=== PATIENT | male | born 1940 | race Caucasian/White ===

== ENCOUNTER → 2022-06-15 | Outpatient (CLI) | payer SELFPAY, OTHER ==
--- NOTE | 2022-06-15 07:19 | MRI_ITS ---
INDICATION: CT showing stones EXAMINATION: MRI - MR MRCP and Abdomen W/O Contrast TECHNIQUE: Multiplanar and multisequence MR images of the abdomen were obtained with MRCP sequence. Three-dimensional post-processing reconstructions were performed. IV Contrast Dosage and Agent: None. COMPARISON: Right upper quadrant ultrasound 05/31/2022. CT May 31, 2022. FINDINGS: LIVER: No mass. Normal morphology. GALLBLADDER AND BILIARY TREE: No gallstones. No gallbladder distension or wall edema. The CBD measures 3 mm with abrupt termination just prior to the ampulla. No intra- or extrahepatic biliary dilation. No choledochal filling defect. PANCREAS: Diffuse smooth pancreatic ductal dilatation, beginning near the ampulla without intraluminal filling defect or surrounding cystic mass. Homogeneous pancreatic parenchyma. No peripancreatic inflammation.. SPLEEN: Non-enlarged. ADRENAL GLANDS: No nodules. KIDNEYS: Homogeneous T2 hyperintense 6.7 cm right renal parapelvic lesion compatible with cyst. Normal renal size and position. No hydronephrosis. No mass. LYMPH NODES: No enlarged periportal or retroperitoneal lymph nodes. PERITONEUM: No ascites or fluid collection. VESSELS: Aorta is non-dilated. LOWER CHEST: Partially seen sternotomy change. No pleural effusion. MRI/MRCP Abdomen without Contrast IMPRESSION: Pancreatic ductal dilatation beginning abruptly at the pancreatic head. Similar abrupt termination of an otherwise nondistended, bile duct at the ampulla. Cannot exclude pancreatic head mass or ampullary ductal stone. Consider smaller [id number] Pancreatic MRI with and without IV contrast and diffusion imaging to further assess for pancreatic head mass. Correlate with pancreatic labs to exclude pancreatitis. Electronically Signed: Julius Rowan MD at 22:34 EST ,
== END | disposition home or self-care (01) ==
PROVIDERS: PCP Family Medicine; Referring Provider Internal Medicine Gastroenterology; Visit Provider Internal Medicine Gastroenterology
DX: R10.9 Unspecified abdominal pain (principal)
CPT/HCPCS: 74181

== ENCOUNTER → 2022-06-24 | Outpatient (CLI) | payer SELFPAY, OTHER ==
--- NOTE | 2022-06-24 09:57 | MRI_ITS ---
REASON FOR EXAM: Male, 81 years old. Follow-up MRCP. Question TECHNIQUE: Standardized fat and water weighted pulse sequences were obtained in all 3 orthogonal planes post contrast administration. 15ML IV CLARISCAN was administered for the contrast portion of the examination. COMPARISON: None. FINDINGS: The visualized lung bases are unremarkable. The visualized portions of the heart are within normal limits. Normal liver. Normal gallbladder and extrahepatic biliary system. Normal spleen. Again noted is marked pancreatic ductal dilatation is noted in the ERCP. This can be followed to just above the ampulla there appears to be abrupt narrowing of the duct versus occlusion. There is no visualized abnormality on T2-weighted imaging. There is no evidence of abnormal enhancement to suggest focal mass. Normal bilateral adrenal glands. Stable large cyst centrally within the right kidney. Small cortical cysts are seen in the lower pole the left kidney. Stomach is poorly distended. Normal visualized small intestine. Normal visualized colon. Normal abdominal aorta. Normal inferior vena cava. Normal retroperitoneum. Normal abdominal wall. There is Normal osseous structures. MRI/MRI Abd WITH and W/O Contrast IMPRESSION: 1. Distended pancreatic duct to the pancreatic head. There is no MR findings to suggest a mass. Question ampullary stenosis the patient may ultimately require ERCP. 2. Stable renal cysts. 3. No other major interval change when compared to the MRCP. Electronically Signed: Eyal Daley DO at 17:34 EST Reading Location ID and State: [facility] / [place] Tel [phone], Service support ,
[2022-06-24 10:25] LABS: CREATININE FINGERSTICK 1.4 mg/dL (0.70-1.30)
[2022-06-24 12:05] LABS: Absolute Lymphocyte Count 1.14 X10^3/uL (0.83-4.51); Absolute Neutrophil Count 4.4 X10^3/uL (2.0-7.7); Basophil# 0.04 X10^3/uL; Basophil% 0.7 % (0-1); Eosinophil# 0.06 X10^3/uL; Hematocrit 48.6 % (40-54); Hemoglobin 16.1 g/dL (13.0-16.5); Lymphocyte # 1.14 X10^3/ul (0.83-4.51); Lymphocyte % 18.9 % (19-41); Mean Corp Hgb Conc 33.1 g/dL (32-36); Mean Corpuscular Hgb 31.1 pg (27.0-32.0); Mean Platelet Vol. 9.4 fl (6.2-12.0); Monocyte# 0.41 X10^3/uL; Monocyte% 6.8 % (0-10); NRBC Flagged by Analyzer 0 % (0-5); Neutrophil # 4.37 X10^3/uL (2.7-7.7); Neutrophil % 72.4 % (47-70); Platelet Count 195 K/mm3 (150-450); RBC Distribution Width CV 13.6 % (11.6-14.6); RBC Distribution Width SD 47.2 fl (35.1-43.9); Red Blood Count 5.17 M/mm3 (4.6-6.2)
[2022-06-24 12:15] LABS: AST(SGOT) 23 U/L (15-37); Alanine Aminotransfer ALT/SGPT 22 U/L (16-61); Albumin, Serum 3.7 g/dL (3.2-5.0); Alkaline Phosphatase 51 U/L (45-117); Amylase 65 U/L (25-115); Anion Gap 5 (5-15); BUN 18 mg/dL (7-18); BUN/Creat Ratio 16.1 RATIO (10-20); Calcium,Total 9.4 mg/dL (8.5-10.1); Chloride 104 mmol/L (98-107); Creatinine, Serum 1.12 mg/dL (0.70-1.30); EST Glomerular Filtration Rate 67 mL/min (>60); Est Glom Filt Rate - Afr Amer 81 mL/min (>60); Globulin 3.7 g/dL (2.2-4.2); Glucose 108 mg/dL (74-106); Lipase 204 U/L (73-393); Potassium 4.1 mmol/L (3.5-5.1); Protein, Total 7.4 g/dL (6.4-8.2); Sodium Level 138 mmol/L (136-145)
[2022-06-25 17:07] LABS: IgG, Quant 967 mg/dL (603-1613); Immunoglobulin G, Subclass 1 395 mg/dL (248-810); Immunoglobulin G, Subclass 2 393 mg/dL (130-555); Immunoglobulin G, Subclass 3 69 mg/dL (15-102)
[2022-06-25 20:59] LABS: Immunoglobulin G, Subclass 4 15 mg/dL (2-96)
== END | disposition home or self-care (01) ==
PROVIDERS: PCP Family Medicine; Referring Provider Internal Medicine Gastroenterology; Visit Provider Internal Medicine Gastroenterology
DX: R93.3 Abnormal findings on diagnostic imaging of other parts of digestive tract (principal)
CPT/HCPCS: 36415; 74183; 80053; 82150; 82784; 82787; 83690; 85025; A9575; A4216

== ENCOUNTER 2022-09-14 11:09 | Day surgery (SDC) | payer SELFPAY, OTHER ==
[2022-09-14] MEDS: Lactated Ringers 1,000 ML 15 ML IV (11:43)
[2022-09-14 11:45] VITALS: BP 142/86; PULSE 62; RESP 18; TEMP 36.7; O2SAT 99; BMI 26.2
--- NOTE | 2022-09-14 12:00 | FLU_PTH ---
PATIENT: KRISTINA BOJORQUEZ LOC: EN U#:[id number] AGE/SX: 82/M ROOM: RE09/14/[address]: Dr. Osito Parikh DO : 1940 BED: DIS: 09/14/2022 SPEC #: [id number] RECD: 09/14/22 13:26 STATUS: KWADWO REFco #: [id number] SHAVON: 09/14/22 12:[address]: Osito Parikh DEPT: CYTOLOGY RECD BY: Payal Palafox ENTERED: 09/14/22 13:42 SP TYPE: Fluid OTHR DR: Dr. James King DO Tissues: A - Bile duct, NOS B - Bile duct, NOS Procedures: Special Stain Group II Surgery Specimen Level IV Cytospin Fluid Cytology Other HEADER OPERATION: ERCP PRE-OP DIAGNOSIS: MRCP abnormality, abdominal pain TISSUE SUBMITTED: A ? Distal common bile duct stricture brushings, B ? Remlap smears x4 DIAGNOSIS CYTOLOGY A. Distal common bile duct stricture brushings (cytospin and cell block): Rare atypical epithelial cells present. See comment. B. Common bile duct brushings (smears): Negative for malignant cells. AM:flower 09/15/2022 COMMENT A. A reactive process is favored. Clinical correlation is suggested. CYTOLOGY STUDY Slides are reviewed. CYTOLOGY GROSS A - Received is a metallic endoscopic cytobrush with adherent minute fragments of peña-red tissue brush in 0.5 ml of light pink fluid and labeled with the patient's name and and designated per the requisition as brushings. The material is dislodged from the brush and submitted for cytology preparation including cell block. B - Received are four smears labeled with the patient's name and designated per the requisition as brush. Submitted for staining. / flower 09/14/2022 TC:5 CPT: 38028, 60468, 62273
--- NOTE | 2022-09-14 12:00 | PCM.HP.BLA ---
History and Physical Date of Admission: 09/14/22 KRISTINA BOJORQUEZ, is a 81 M who presents to the office today for Initial consult. PMH PE, respiratory failure; systolic dysfunction, CAD s/p CABG, anxiety/depression [facility] ED presentation 05.31.22 with abdominal pain. ?Biochemical workup?CBC, CMP, lipase without pertinent abnormality. UA WNL. CT abd/pel?density at gallbladder neck, gallstone; pancreatic head calcification near amuplla of Vater measuring 0.8x0.5cm, pancreatic duct measures 0.5cm, mild pancreatic atrophy; renal cysts; moderate to large stool burden; diverticulosis of colon ?US RUQ?noting 3 shadowing stones of gallbladder measuring 1.5-2.1cm. CBD obscured. *BGI established 06.01.22 following [facility] ED presentation. Continues to have abdominal pain which presented initially LUQ and is now settled into right lower flank. Constipation is a difficulty with BM occurring approximately once a week; utilizes PRN MiraLAX and magnesium citrate. ROS Const Constitutional: No anorexia, fatigue, fever(s), weight change or sleep problems Eyes Eyes: No change in vision ENT ENT: No abnormal hearing, difficulty swallowing, mouth lesions, tongue swelling or throat swelling Resp Respiratory: No cough or shortness of breath Cardio Cardiology: No chest pain at rest, chest pain with exertion, shortness of breath or dyspnea on exertion Gastro GI: No difficulty swallowing Genitourinary Male: No difficulty urinating or burning urination Musc Musculoskeletal: No joint pain, joint swelling, muscle weakness or decreased muscle mass Skin Skin: No hair loss in leg, yellowing of the eye, itchy eyes, rash, skin ulcer or skin swelling Neuro Neurology: No abnormal hearing, abnormal movements, confusion, unsteady gait/balance or memory loss Psych Psychiatric: No anxiety, No confusion and No memory loss Endo Endocrine: No fatigue or weight change Aller/Imm Allergy/Immunologic: No itchy eyes, throat swelling or tongue swelling Marcial/Lymp Hematologic/Lymphatic: No easy bleeding, easy bruising or enlarged lymph nodes Exam Const General: cooperative and comfortable Nutritional Appearance: average body habitus and well nourished HENMT Head: normal to inspection Ears: hearing grossly normal bilaterally Nose: external nose normal Face and sinus: normal facial exam Mouth: oral mucosae normal Throat: posterior oropharynx normal Eyes General: appearance normal, both eyes and all related structures Neck Neck: normal visual inspection Chest Chest palpation & inspection: normal inspection of the chest and normal palpation of entire chest wall Resp Effort & Inspection: normal respiratory effort Auscultation: Bilateral: Clear to Auscultation Cardio Palpation: normal PMI Rate: regular rate Rhythm: regular rhythm GI Inspection: normal to inspection Auscultation: normal bowel sounds Percussion: normal to percussion Palpation: no hepatosplenomegaly Skin General: no rashes or lesions noted Neuro General: patient alert Extrem General: normal to inspection Psych Affect: normal affect Quality Reporting Tobacco Screening ([facility] 138) Smoking Status: Never smoker Assessment and Plan Assessment and Plan (1) Constipation: ?Status:?Chronic ?Plan: Chronic idiopathic constipation 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 We will put him on Linzess 145 mcg p.o. daily. (2) Abdominal pain: ?Status:?Chronic ?Plan: Abdominal pain with history of possible chronic pancreatitis.? We will work him up for IgG associated liver disease and IgG associated pancreatitis.? We will get an MRCP for further evaluation of his hepatobiliary system. ? ? ? Orders: Orders MRCP Abdomen without Contrast 06/15/22 R10.9 - Unspecified abdominal pain ? Medications: New linaclotide (Linzess) ?? take 30 minutes prior to first intake of the day. 145 mcg PO DAILY 30 caps 5RF ? ? ursodiol 300 mg PO BID 60 caps 5RF ? ? pantoprazole (Protonix) 40 mg PO DAILY 30 tabs 5RF ? ? (3) abnormal MRCP : ? Pancreatic ductal dilatation beginning abruptly at the pancreatic head. Similar abrupt termination of an otherwise nondistended, bile duct at the ampulla.? Cannot exclude pancreatic head mass or ampullary ductal stone. Consider smaller [id number] Pancreatic MRI with and without IV contrast and diffusion imaging to further assess for pancreatic head mass. Correlate with pancreatic labs to exclude pancreatitis. Follow-up MRI of the liver displays? :Distended pancreatic duct to the pancreatic head. There is no MR findings to suggest a mass. Question ampullary stenosis the patient may ultimately require ERCP. Patient will undergo ERCP. He was explained alternatives, risk, benefits including outstanding bleeding, infection, sepsis, perforation, post ERCP pancreatitis. He will have an ASA of 3. ?
--- NOTE | 2022-09-14 12:15 | RAD_ITS ---
STUDY: ERCP REASON FOR EXAM: Male, 82 years old. Right upper quadrant pain FLUOROSCOPY TIME (if supplied): ( 75.4 seconds ) minutes/seconds. 15.42 mGy TECHNIQUE: ERCP was performed by the roller embosser. Imaging was submitted. COMPARISON: None. FINDINGS: The visualized intrahepatic biliary ducts are unremarkable. The common bile duct is unremarkable. There appears to be a stent placement. RAD/ERCP Biliary Only IMPRESSION: Fluoroscopic services provided for ERCP. Electronically Signed: Ayden Coleman MD at 14:51 EDT ,
--- NOTE | 2022-09-14 13:25 | OP.ERCP_ITS ---
Patient Name: Regis Munoz Procedure Date: 09/14/2022 10:33 AM Date of : 1940 Age: 82 Procedure: ERCP Indications: Bile duct stone(s) Providers: Osito Parikh DO Referring MD: James King Medicines: Monitored Anesthesia Care Patient Profile: This is an 82 year old male. Refer to note in patient chart for documentation of history and physical. Patient has symptoms of acute right upper quadrant abdominal pain. This patient has no history of previous ERCP. Complications: No immediate complications. Procedure: Pre-Anesthesia Assessment: - Prior to the procedure, a History and Physical was performed, and patient medications and allergies were reviewed. The patient is competent. The risks and benefits of the procedure and the sedation options and risks were discussed with the patient. All questions were answered and informed consent was obtained. Patient identification and proposed procedure were verified by the physician. Mental Status Examination: normal. Airway Examination: normal oropharyngeal airway and neck mobility. Respiratory Examination: clear to auscultation. CV Examination: normal. Prophylactic Antibiotics: The patient does not require prophylactic antibiotics. Prior Anticoagulants: The patient has taken no previous anticoagulant or antiplatelet agents. After reviewing the risks and benefits, the patient was deemed in satisfactory condition to undergo the procedure. The anesthesia plan was to use monitored anesthesia care (MAC). Immediately prior to administration of medications, the patient was re-assessed for adequacy to receive sedatives. The heart rate, respiratory rate, oxygen saturations, blood pressure, adequacy of pulmonary ventilation, and response to care were monitored throughout the procedure. The physical status of the patient was re-assessed after the procedure. After obtaining informed consent, the scope was passed under direct vision. Throughout the procedure, the patient's blood pressure, pulse, and oxygen saturations were monitored continuously. The Duodenoscope was introduced through the mouth, and advanced to the duodenum and used to inject contrast into the bile duct. The ERCP was accomplished without difficulty. The patient tolerated the procedure well. Scope In: 12:37:51 PM Scope Out: 1:08:47 PM Total Procedure Duration Time 0 hours 30 minutes 56 seconds Findings: The tracer lathe set up operator film was normal. The esophagus was successfully intubated under direct vision. The scope was advanced to a normal major papilla in the descending duodenum without detailed examination of the pharynx, larynx and associated structures, and upper GI tract. The upper GI tract was grossly normal. The bile duct was deeply cannulated with the short-nosed traction sphincterotome. Contrast was injected. I personally interpreted the bile duct images. There was brisk flow of contrast through the ducts. Image quality was excellent. Contrast extended to the entire biliary tree. Opacification of the entire biliary tree except for the cystic duct and gallbladder and main bile duct was successful. The maximum diameter of the ducts was 6 mm. The biliary orifice was stenotic. This appeared benign. A straight Roadrunner wire was passed into the biliary tree. A 5 mm biliary sphincterotomy was made with a braided traction (standard) sphincterotome using ERBE electrocautery. There was no post-sphincterotomy bleeding. To discover objects, the biliary tree was swept with a 12 mm balloon starting at the bifurcation. Sludge was swept from the duct. All stones were removed. The lower third of the main bile duct was successfully dilated with a 6-7-8 mm balloon (to a maximum balloon size of 8 mm) dilator. Cells for cytology were obtained by brushing in the lower third of the main bile duct. One 10 Fr by 5 cm temporary stent was placed 5 cm into the common bile duct. Bile flowed through the stent. The stent was in good position. Impression: - Biliary papillary stenosis, benign. - Choledocholithiasis was found. Complete removal was accomplished by biliary sphincterotomy and balloon extraction. - A biliary sphincterotomy was performed. - The biliary tree was swept. - The lower third of the main bile duct was successfully dilated. - Cells for cytology obtained in the lower third of the main duct. - One temporary stent was placed into the common bile duct. Procedure Code(s): --- Professional --- 54592, Endoscopic retrograde cholangiopancreatography (ERCP); with placement of endoscopic stent into biliary or pancreatic duct, including pre- and post-dilation and guide wire passage, when performed, including sphincterotomy, when performed, each stent [id number], Endoscopic retrograde cholangiopancreatography (ERCP); with removal of calculi/debris from biliary/pancreatic duct(s) 31718, 26, Endoscopic catheterization of the biliary ductal system, radiological supervision and interpretation CPT copyright 2017 [employer]. All rights reserved. The codes documented in this report are preliminary and upon residential coordinator review may be revised to meet current compliance requirements. Osito Friend, DO 09/14/2022 1:24:49 PM This report has been signed electronically. Number of Addenda: 0 Note Initiated On: 09/14/2022 10:33 AM
--- NOTE | 2022-09-14 13:25 | OP.CCLET_ITS ---
09/14/2022 James King Re : ERCP procedure for Regis Munoz Dear Fernando This procedure was performed on Wednesday, September 14, 2022. My impressions and recommendations are as follows: Impressions : - Biliary papillary stenosis, benign. - Choledocholithiasis was found. Complete removal was accomplished by biliary sphincterotomy and balloon extraction. - A biliary sphincterotomy was performed. - The biliary tree was swept. - The lower third of the main bile duct was successfully dilated. - Cells for cytology obtained in the lower third of the main duct. - One temporary stent was placed into the common bile duct. Recommendations : My findings are described in the full procedure note, which is enclosed. If I can be of further assistance, please feel free to contact me at . Sincerely, Osito Parikh, 09/14/2022 1:24:49 PM This report has been signed electronically.
[2022-09-14 13:30] VITALS: BP 142/86; BP 147/93; PULSE 68; RESP 16; TEMP 36.2; O2SAT 96
[2022-09-14 13:45] VITALS: BP 142/86; BP 157/96; PULSE 68; RESP 16; O2SAT 96
[2022-09-14 14:00] VITALS: BP 142/86; BP 144/87; PULSE 70; RESP 16; TEMP 36.2
[2022-09-14 14:22] VITALS: BP 142/86
== END 2022-09-14 14:49 | disposition home or self-care (01) ==
LOC: EN 11:10 → AC 11:12
PROVIDERS: PCP Family Medicine; Referring Provider Internal Medicine Gastroenterology; Visit Provider Internal Medicine Gastroenterology
PROC: (CPT 43260; principal; 2022-09-14 11:40)
DX: K80.51 Calculus of bile duct without cholangitis or cholecystitis with obstruction (principal); K21.9 Gastro-esophageal reflux disease without esophagitis; K59.04 Chronic idiopathic constipation; I25.10 Atherosclerotic heart disease of native coronary artery without angina pectoris; I10 Essential (primary) hypertension; E78.00 Pure hypercholesterolemia, unspecified; F41.9 Anxiety disorder, unspecified; R93.5 Abnormal findings on diagnostic imaging of other abdominal regions, including retroperitoneum; Z95.1 Presence of aortocoronary bypass graft; Z79.82 Long term (current) use of aspirin; Z79.899 Other long term (current) drug therapy; Z86.711 Personal history of pulmonary embolism
CPT/HCPCS: 43264; 43274; 74328; 76000; 88108; 88161; 88305; 88313; 93005; J7120; J2405

== ENCOUNTER → 2023-04-12 | Outpatient (CLI) | payer SELFPAY, OTHER ==
--- NOTE | 2023-04-12 11:31 | RAD_ITS ---
STUDY: X-RAY - ABDOMEN/PELVIS REASON FOR EXAM: Male, 82 years old. Stent patency TECHNIQUE: Two AP supine views of the abdomen and pelvis. COMPARISON: None. FINDINGS: There is a visualize biliary stent. Patency cannot be described. There is a visualized stone adjacent to the right-sided psoas muscle measuring 5.7 mm. There is moderate stool within the colon. There is no demonstrated free abdominal air. The liver spleen and kidneys are mostly obscured.. Normal soft tissue structures. Normal visualized osseous structures. RAD/Abdomen Single View IMPRESSION: There is a visualized biliary stent. Recommend correlation with noncontrast renal colic CT if appropriate. Recommend correlation with clinical history. Electronically Signed: Flores Wall MD at 5:16 EST ,
== END | disposition home or self-care (01) ==
LOC: RAD 11:29
PROVIDERS: PCP Family Medicine; Referring Provider Internal Medicine Gastroenterology; Visit Provider Internal Medicine Gastroenterology
DX: Z98.890 Other specified postprocedural states (principal)
CPT/HCPCS: 74018

== ENCOUNTER 2023-07-20 11:10 | Day surgery (SDC) | payer SELFPAY, OTHER ==
--- NOTE | 2023-07-20 | FLU_PTH ---
PATIENT: KRISTINA BOJORQUEZ LOC: EN U#:[id number] AGE/SX: 82/M ROOM: RE07/20/[address]: Dr. Osito Parikh DO : 1940 BED: DIS: 07/20/2023 SPEC #: [id number] RECD: 07/20/23 15:07 STATUS: KWADWO FABIANA #: [id number] SHAVON: 07/20/23 00:[address]: Osito Parikh DEPT: CYTOLOGY RECD BY: Saud Kelly ENTERED: 07/21/23 09:53 SP TYPE: Fluid OTHR DR: Dr. James King DO Tissues: Biliary tract, NOS Procedures: Special Stain Group II Surgery Specimen Level IV Cytospin Fluid HEADER OPERATION: ERCP with stent pull and balloon sweep PRE-OP DIAGNOSIS: Choledocholithiasis with obstruction, Constipation, Abdominal pain TISSUE SUBMITTED: Biliary stent for cytology DIAGNOSIS CYTOLOGY Biliary stent fluid for cytology (cytospin): Negative for malignant cells. SJ/mr 07/22/23 CYTOLOGY STUDY Slides are reviewed. CYTOLOGY GROSS Received is 0.25 ml of dark cloudy fluid labeled with the patient's name and and designated per the requisition as Biliary stent. Submitted for cytology preparation including cell block. mr 07/21/23 TC:5 CPT: 72738,90976
--- NOTE | 2023-07-20 11:20 | EKG12_ITS ---
Test Reason : pre op Blood Pressure : / mmHG Vent. Rate : 070 BPM Atrial Rate : 070 BPM P-R Int : 170 ms QRS Dur : 086 ms QT Int : 410 ms P-R-T Axes : 034 025 -10 degrees QTc Int : 442 ms Normal sinus rhythm Inferior infarct (cited on or before 14-SEP-2022) Possible Anterior infarct , age undetermined Abnormal ECG When compared with ECG of 14-SEP-2022 11:30, No significant change was found Confirmed by LUIS MANUEL CASTRO, DAVIAN ([id number]), manuscript editor BELÉN CHAND ([id number]) on 07/21/2023 1:37:20 PM Referred By: James King Confirmed By:DAVIAN ISSA MD
[2023-07-20 11:28] VITALS: BP 144/98; PULSE 77; RESP 16; TEMP 36.7; O2SAT 97; BMI 26.6
[2023-07-20] MEDS: Lactated Ringers 1,000 ML 15 ML IV (11:37)
--- NOTE | 2023-07-20 12:56 | PCM.HP.BLA ---
History and Physical Date of Admission: 07/20/23 KRISTINA BOJORQUEZ, is a 82 M who presents to the office today for PMH PE, respiratory failure; systolic dysfunction, CAD s/p CABG, anxiety/depression [facility] ED presentation 05.31.22 with abdominal pain. ? Biochemical workup CBC, CMP, lipase without pertinent abnormality. UA WNL. CT abd/pel density at gallbladder neck, gallstone; pancreatic head calcification near ampulla of Vater measuring 0.8x0.5cm, pancreatic duct measures 0.5cm, mild pancreatic atrophy; renal cysts; moderate to large stool burden; diverticulosis of colon ? US RUQ noting 3 shadowing stones of gallbladder measuring 1.5-2.1cm. CBD obscured. *BGI established 06.01.22 following [facility] ED presentation. Continues to have abdominal pain which presented initially LUQ and is now settled into right lower flank. Constipation is a difficulty with BM occurring approximately once a week; utilizes PRN MiraLAX and magnesium citrate. MRCP 06.15.22 CBD 3mm with abrupt termination just prior to ampulla; diffuse smooth pancreatic ductal dilation starting near ampulla without intraluminal filling defect or surrounding cystic mass; homogenous pancreatic parenchyma without inflammation. Cannot exclude pancreatic head mass or ampullary ductal stone. Consider smaller [id number] pancreatic MRI and diffusion imaging; correlate with pancreatic labs. Biochemical CBC, CMP, amylase, lipase, IgG subclasses without pertinent abnormality. MRI pancreatic protocol 06.24.22 marked pancreatic ductal dilation, followed to just above ampulla with abrupt narrowing of duct versus occlusion. No mass. ERCP 09.14.22 biliary papillary stenosis; choledocholithiasis removed via sphincterotomy and balloon extraction; lower third MBD dilated; temporary stent placed in CBD. Cytology without malignancy. OV scheduled 09.28.22 and cancelled without f/u scheduled. He was unable to leave the home at the time of apt. Call 09.30.22 with biopsy results. Contact 01.28.23 with concern from family regarding being able to undergo another procedure; OK to wait for stent pull ? KUB 12.23 biliary stent; 5.7mm stone adjacent to right-side psoas muscle; moderate colonic fecal retention OV 3.14.24 ROS Const Constitutional: No anorexia, body ache, chills, excessive sweating, fatigue, fever(s), frequent falls, headache(s), decreased energy, malaise, night sweats, snoring, weakness, weight change, sleep problems, abnormal sleep pattern, change in appetite or other Eyes Eyes: No visual disturbances ENT ENT: No abnormal hearing, headache(s), difficulty swallowing or neck pain Resp Respiratory: No snoring Cardio Cardiology: No leg pain with exertion or excessive sweating Gastro GI: Positive for constipation; No abdominal pain, belching, bloating, change in bowel habits, change in stool character, coffee ground emesis, cramping, diarrhea, heartburn, difficulty swallowing, feeling full early, excessive flatus, incontinent of stools, Vomiting blood/hematemesis, Blood in stool, loose stools, Black,tarry stools, nausea/dyspepsia, pain with swallowing, vomiting or other Musc Musculoskeletal: No abnormal gait, joint pain, back pain, deformity, joint swelling, limited range of motion, loss of height, muscle cramps, muscle weakness, decreased muscle mass, myalgias, neck pain, numbness, radiating pain into limb, stiffness, tingling, Arthritis, sciatica, restless legs, leg pain at night, leg pain with exertion or other Skin Skin: No acne, hair loss in leg, change in hair, nail changes, boil, change in skin color, dry skin, redness, excessive hair growth, yellowing of the eye, lesions, itchy eyes, rash, skin pain, skin ulcer, sores, skin swelling, wounds or other Neuro Neurology: No abnormal gait, abnormal hearing, abnormal movements, abnormal speech, behavioral changes, confusion, unsteady gait/balance, dizziness, weakness, frequent falls, headache(s), lack of coordination, loss of vision, memory loss, numbness, tingling, visual disturbances, restless legs, fainting, tremor(s), Increased tone in limbs, paralysis, seizures or other Psych Psychiatric: No abnormal sleep pattern, No lack of enjoyment, Positive for anxiety, No behavioral changes, No change in appetite, No confusion, No depression, No difficulty concentrating, No hopelessness, No irritability, No memory loss, No mood swings, No panic attacks, No paranoia, No Thoughts of harming yourself/Others, No hallucinations, No Behavioral Problems, No Compulsive Behavior, No hyperactivity, No inattentiveness, No obsessions/compulsions, No Temper Tantrums, No suicidal ideation and No other Endo Endocrine: No excessive sweating, fatigue or weight change Aller/Imm Allergy/Immunologic: No itchy eyes Exam Const General: cooperative and comfortable Nutritional Appearance: average body habitus and well nourished HENMT Head: normal to inspection Ears: hearing grossly normal bilaterally Nose: external nose normal Face and sinus: normal facial exam Mouth: oral mucosae normal Throat: posterior oropharynx normal Eyes General: appearance normal, both eyes and all related structures Neck Neck: normal visual inspection Chest Chest palpation & inspection: normal inspection of the chest and normal palpation of entire chest wall Resp Effort & Inspection: normal respiratory effort Auscultation: Bilateral: Clear to Auscultation Cardio Palpation: normal PMI Rate: regular rate Rhythm: regular rhythm GI Inspection: normal to inspection Auscultation: normal bowel sounds Percussion: normal to percussion Palpation: no hepatosplenomegaly Skin General: no rashes or lesions noted Neuro General: patient alert Extrem General: normal to inspection Psych Affect: normal affect Quality Reporting Tobacco Screening ([facility] 138) Smoking Status: Never smoker Assessment and Plan Assessment and Plan (1) Choledocholithiasis with obstruction: Status: Resolved Comment: s/p ERCP 09.14.22 (2) Constipation: Status: Chronic Plan: Chronic idiopathic constipation 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 We will put him on Linzess 145 mcg p.o. daily. (3) Abdominal pain: Status: Chronic Plan: Abdominal pain with history of possible chronic pancreatitis. We will work him up for IgG associated liver disease and IgG associated pancreatitis. We will get an MRCP for further evaluation of his hepatobiliary system. His MRCP did show choledocholithiasis. He underwent ERCP and had 2 stones removed. He had a temporary stent placed back in August 2022 but because of his health he was not able to get the stent removed. He comes back in good health without any medical problems except for some problems regarding his prostate. We will schedule him for ERCP with stent removal. I have examined the patient and the H&P has been reviewed. There are no clinical changes since date of exam.
--- NOTE | 2023-07-20 13:30 | RAD_ITS ---
STUDY: ERCP. REASON FOR EXAM: Male, 82 years old. Removal of the biliary stent. FLUOROSCOPY TIME (if supplied): ( 2 minutes and 28 seconds. ) minutes/seconds. 58.1 mGy. 13 images were obtained. TECHNIQUE: An ERCP was performed by the manager application. Biliary stent was removed. COMPARISON: None. FINDINGS: Biliary stent removal. RAD/ERCP Biliary/Pancreas IMPRESSION: Biliary stent removal. Electronically Signed: Ayden Coleman MD at 14:08 EDT ,
--- NOTE | 2023-07-20 13:52 | OP.ERCP_ITS ---
Patient Name: Regis Munoz Procedure Date: 07/20/2023 1:03 PM Date of : 1940 Age: 82 Procedure: ERCP Indications: Common bile duct stone(s), Stent removal Providers: Osito Parikh DO Medicines: Monitored Anesthesia Care Patient Profile: This is an 82 year old male. Refer to note in patient chart for documentation of history and physical. Patient has symptoms. His most recent ERCP for biliary evaluation, ERCP for stent and ERCP for stone removal. Complications: No immediate complications. Procedure: Pre-Anesthesia Assessment: - Prior to the procedure, a History and Physical was performed, and patient medications and allergies were reviewed. The patient is competent. The risks and benefits of the procedure and the sedation options and risks were discussed with the patient. All questions were answered and informed consent was obtained. Patient identification and proposed procedure were verified by the physician. Mental Status Examination: normal. Prophylactic Antibiotics: The patient does not require prophylactic antibiotics. Prior Anticoagulants: The patient has taken no anticoagulant or antiplatelet agents. After reviewing the risks and benefits, the patient was deemed in satisfactory condition to undergo the procedure. The anesthesia plan was to use monitored anesthesia care (MAC). Immediately prior to administration of medications, the patient was re-assessed for adequacy to receive sedatives. The heart rate, respiratory rate, oxygen saturations, blood pressure, adequacy of pulmonary ventilation, and response to care were monitored throughout the procedure. The physical status of the patient was re-assessed after the procedure. After obtaining informed consent, the scope was passed under direct vision. Throughout the procedure, the patient's blood pressure, pulse, and oxygen saturations were monitored continuously. The Duodenoscope was introduced through the mouth, and advanced to the duodenum and used to inject contrast into the bile duct and ventral pancreatic duct. The ERCP was accomplished without difficulty. The patient tolerated the procedure well. Scope In: 1:23:52 PM Scope Out: 1:39:55 PM Total Procedure Duration Time 0 hours 16 minutes 3 seconds Findings: The cardiology specialist film was normal. The esophagus was successfully intubated under direct vision. The scope was advanced to a normal major papilla in the descending duodenum without detailed examination of the pharynx, larynx and associated structures, and upper GI tract. The upper GI tract was grossly normal. The bile duct was deeply cannulated with the short-nosed traction sphincterotome. Contrast was injected. I personally interpreted the bile duct and pancreatic duct images. There was brisk flow of contrast through the ducts. Image quality was adequate. Contrast extended to the entire biliary tree. Opacification of the entire biliary tree except for the cystic duct and gallbladder was successful. The maximum diameter of the ducts was 10 mm. The lower third of the main bile duct contained filling defect(s) thought to be a stone and sludge. Opacification of the entire biliary tree except for the cystic duct and gallbladder was successful. The maximum diameter of the ducts was 10 mm. The lower third of the main bile duct contained two stones, the largest of which was 6 mm in diameter. The main bile duct was diffusely dilated, with a stone causing an obstruction. The largest diameter was 10 mm. A straight Roadrunner wire was passed into the biliary tree. A 5 mm biliary sphincterotomy was made with a monofilament traction (standard) sphincterotome using ERBE electrocautery. There was no post-sphincterotomy bleeding. The biliary tree was swept with a 12 mm balloon starting at the bifurcation and left intrahepatic duct(s). Sludge was swept from the duct. All stones were removed. One stent was removed from the biliary tree and sent for cytology. The stent was found to be partially occluded via the water column test. Impression: - A filling defect consistent with a stone and sludge was seen on the cholangiogram. - The entire main bile duct was dilated, with a stone causing an obstruction. - Choledocholithiasis was found. Complete removal was accomplished by biliary sphincterotomy and balloon extraction. - A biliary sphincterotomy was performed. - The biliary tree was swept. - One stent was removed from the biliary tree. Procedure Code(s): --- Professional --- 54403, Endoscopic retrograde cholangiopancreatography (ERCP); with removal of foreign body(s) or stent(s) from biliary/pancreatic duct(s) 68833, Endoscopic retrograde cholangiopancreatography (ERCP); with removal of calculi/debris from biliary/pancreatic duct(s) 33273, Endoscopic retrograde cholangiopancreatography (ERCP); with sphincterotomy/papillotomy CPT copyright 2021 [employer]. All rights reserved. The codes documented in this report are preliminary and upon metal bonding press operator review may be revised to meet current compliance requirements. Osito Parikh DO 07/20/2023 1:52:33 PM This report has been signed electronically. Number of Addenda: 0 Note Initiated On: 07/20/2023 1:03 PM
[2023-07-20 13:53] VITALS: BP 115/82; BP 144/98; PULSE 60; RESP 16; TEMP 36.8; O2SAT 93
--- NOTE | 2023-07-20 13:53 | OP.CCLET_ITS ---
07/20/2023 James King Re : ERCP procedure for Regis Munoz Dear Fernando This procedure was performed on Thursday, July 20, 2023. My impressions and recommendations are as follows: Impressions : - A filling defect consistent with a stone and sludge was seen on the cholangiogram. - The entire main bile duct was dilated, with a stone causing an obstruction. - Choledocholithiasis was found. Complete removal was accomplished by biliary sphincterotomy and balloon extraction. - A biliary sphincterotomy was performed. - The biliary tree was swept. - One stent was removed from the biliary tree. Recommendations : My findings are described in the full procedure note, which is enclosed. If I can be of further assistance, please feel free to contact me at . Sincerely, Osito Parikh, 07/20/2023 1:52:33 PM This report has been signed electronically.
[2023-07-20 13:55] VITALS: BP 123/72; BP 144/98; PULSE 62; RESP 16; O2SAT 94
[2023-07-20 14:00] VITALS: BP 131/78; BP 144/98; PULSE 62; RESP 16; O2SAT 94
[2023-07-20 14:05] VITALS: BP 116/83; BP 144/98; PULSE 63; RESP 16; TEMP 37; O2SAT 94
[2023-07-20 14:33] VITALS: BP 144/98
== END 2023-07-20 14:35 | disposition home or self-care (01) ==
LOC: EN 11:15 → AC 11:16
PROVIDERS: PCP Family Medicine; Referring Provider Family Medicine; Visit Provider Internal Medicine Gastroenterology
PROC: (CPT 43260; principal; 2023-07-20 11:40)
DX: K80.51 Calculus of bile duct without cholangitis or cholecystitis with obstruction (principal); K21.9 Gastro-esophageal reflux disease without esophagitis; K59.09 Other constipation; I10 Essential (primary) hypertension; E78.00 Pure hypercholesterolemia, unspecified; F41.9 Anxiety disorder, unspecified; Z95.1 Presence of aortocoronary bypass graft; Z79.82 Long term (current) use of aspirin; Z79.899 Other long term (current) drug therapy; Z86.711 Personal history of pulmonary embolism
CPT/HCPCS: 43275; 43264; 43262; 74330; 76000; 88108; 88305; 88313; 93005; J2405